=== PATIENT | female | born 1990 | race African-American/Black ===

== ENCOUNTER 2016-11-24 06:15 | Day surgery (SDC) | payer OTHER ==
[2016-11-20 15:04] VITALS: BMI 37.8
[2016-11-24] MEDS ORDERED: oxyCODONE HCL 5 MG TABLET PO PRN ×3 (12:24→16:29)
[2016-11-24] MEDS ORDERED: ACETAMINOPHEN 1000 MG/100 ML VIAL (NON FORMULARY) IVPB ONE ×2 (12:24→16:30)
[2016-11-24] MEDS ORDERED: ONDANSETRON 4 MG/2 ML VIAL IVPUSH PRN ×2 (12:24→16:29)
[2016-11-24] MEDS ORDERED: LACTATED RINGERS SOLUTION 1,000 ML IV SCH (12:30)
[2016-11-24] MEDS ORDERED: PROPOFOL 20 ML ONE ×2 (14:31→15:26)
[2016-11-24] MEDS ORDERED: LIDOCAINE HCL/PF 2% SDV 5ML VIAL ONE (14:31)
[2016-11-24] MEDS ORDERED: MIDAZOLAM HCL 2 MG/2 ML SINGLE DOSE VIAL ONE (14:35)
--- NOTE | 2016-11-24 14:58 | HP ---
History & Physical Update - History History: No Change - Physical Physical: No Change - Assessment Assessment: No Change - Plan Plan: No Change (Risks, benefits, alternatives d/w patient understands risk of infection, bleeding, uterine perforation, injury to bowel, bladder, vessels, need for Hysterectomy. Consent signed and witnessed)
[2016-11-24] MEDS ORDERED: DEXAMETHASONE SOD PHOSPHATE 4 MG/1 ML VIAL ONE (15:43)
[2016-11-24] MEDS ORDERED: ONDANSETRON 4 MG/2 ML VIAL IVPB PRN (16:17)
[2016-11-24] MEDS ORDERED: IBUPROFEN 800 MG/8 ML IJ IVPB PRN (16:17)
[2016-11-24] MEDS ORDERED: IBUPROFEN 600 MG TABLET (FP) PO PRN (16:17)
--- NOTE | 2016-11-24 16:26 | OP ---
Operative Note - Note: Operative Date: 11/24/16 Pre-Operative Diagnosis: 26yo P0 with PCOS, thick endometrium Operation: Hysteroscopy, D&C Findings: Overgrown Endometrium, bilateral ostia visualized, Extensive vasulature Post-Operative Diagnosis: Same as Pre-op Surgeon: Angi Street Anesthesiologist/EAR MUFF ASSEMBLER: Berenice Tony Anesthesia: General Specimens Removed: Endometrial curettings Estimated Blood Loss (mls): 20 Drains & Tubes with Location: Fluid deficit - 930cc Drains, Volume Out (mls): 150 Fluid Volume Replaced (mls): 1,000 Operative Report Dictated: Yes
[2016-11-24] MEDS ORDERED: KETOROLAC TROMETHAMINE 30 MG/1 ML VIAL ONE (16:30)
[2016-11-24] MEDS ORDERED: ELECTROLYTE-148 SOLN 1,000 ML IV SCH (16:30)
[2016-11-24] MEDS ORDERED: KETOROLAC TROMETHAMINE 30 MG/1 ML VIAL IVPUSH ONE (16:31)
[2016-11-24 17:20] VITALS: TEMP 97.8
[2016-11-24 18:53] VITALS: BP 116/64; PULSE 72
--- NOTE | 2016-11-25 07:43 | OP ---
DATE OF OPERATION: 11/24/2016 PREOPERATIVE DIAGNOSES: A 26-year-old para 0 with polycystic ovary syndrome and thickened endometrium. POSTOPERATIVE DIAGNOSES: A 26-year-old para 0 with polycystic ovary syndrome and thickened endometrium. OPERATION: Hysteroscopy, dilatation and curettage. FINDINGS: Overgrown endometrium. Bilateral ostia visualized. Extensive uterine vasculature. SURGEON: Angi Street MD ANESTHESIOLOGIST: BRAD Tony ANESTHESIA: General. SPECIMENS REMOVED: Endometrial curettings. DESCRIPTION OF PROCEDURE: After ensuring the informed consent, patient was brought to the operating room where she was placed in dorsal lithotomy position. Venodynes were placed. General anesthesia was administered. Perineum was prepped and draped in sterile fashion. After assembling 5-mm scope, cervix was visualized by placing Salcedo retractors into the vagina. Cervix was articulated with single-tooth tenaculum and gradually dilated up to gauge 17 Coronel dilators to accommodate 5-mm scope which was introduced into the uterus. Excellent uterine distention was noted. The endometrium was found to be significantly overgrown, but there were no endometrial polyps visualized. Sharp curettage was performed. The hysteroscope was introduced once more. The endometrium was found to be denuded, and extensive uterine vasculature was observed. Uterus was found to be intact. All instruments were removed from the uterus, cervix, and vagina. Excellent hemostasis was noted. Patient was placed back into supine position. Instrument and sponge count was correct x2. Estimated blood loss was 20 mL. Patient drained 100 mL of urine, received 1000 mL of fluid replacement, and fluid deficit was found to be 930 mL, likely due to extensive uterine vasculature. Patient was brought to the recovery room in stable condition. Nell [id number]
--- NOTE | 2016-11-26 13:33 | PATH ---
Surgical Pathology Report Patient Name: DAPHNEY ZEPEDA [facility]. Rec. #: [id number] /Age/Gender: 1990 (Age: 26) / F Account: [id number] Location: [facility] SURGICAL Taken: 11/24/2016 Received: 11/25/2016 Reported: 11/26/2016 Physicians: Angi Street M.D. Specimen(s) Received ENDOMETRIAL CURETTINGS Clinical History Polycystic ovarian syndrome Final Diagnosis ENDOMETRIUM, CURETTAGE: FRAGMENTS OF INACTIVE ENDOMETRIUM WITH FOCAL CHANGES SUGGESTIVE OF EXOGENOUS HORMONE EFFECT AND FOCAL STROMAL AND GLANDULAR BREAKDOWN CHANGES. FRAGMENTS OF BENIGN SMOOTH MUSCLE. FRAGMENTS OF BENIGN ENDOCERVICAL TISSUE. FRAGMENTS OF BENIGN SQUAMOUS EPITHELIUM. Electronically Signed Sulaiman Zhou M.D. Gross Description Received in formalin labeled "endometrial curettings" is a 7.0 x 6.2 x 0.5 cm aggregate of marcial-brown soft tissue fragments admixed with blood clot. The formalin is filtered and the specimen is entirely submitted in 8 cassettes. /11/25/2016 saudi11/25/2016
== END 2016-11-24 18:25 | disposition home or self-care (01) ==
LOC: JASU-SURG 06:15
PROVIDERS: ATTEND Obstetrics & Gynecology
PROC: 0UDB8ZX Extraction of Endometrium, Via Natural or Artificial Opening Endoscopic, Diagnostic (ICD-10-PCS; principal; 2016-11-24 12:00)
DX: E28.2 Polycystic ovarian syndrome (principal); R93.8 Abnormal findings on diagnostic imaging of other specified body structures
CPT/HCPCS: 88305-TC; 94760

== ENCOUNTER 2016-11-24 22:37 | Emergency (ER) | payer OTHER ==
[2016-11-24 22:41] VITALS: BP 137/77; PULSE 94; BMI 38.3
--- NOTE | 2016-11-24 22:46 | PDOC ---
History of Present Illness - General History Source: Patient Exam Limitations: No Limitations <ChongMacrina skinner - Last Filed: 11/24/16 23:42> <Grace Vines - Last Filed: 11/25/16 00:17> - General Chief Complaint: Chest Pain Stated Complaint: CHEST PAIN - History of Present Illness Initial Comments: The patient is a 26 yo F with a past medical history of polycystic ovarian syndrome and endometriosis presents with chest pain s/p general anesthesia for a D&C earlier today. Patient had a POS, D&C and thick endometrium and a hysteroscopy. As per past charts, patient lost 930 ccs which was replaced by 1000 cc of fluids. Patient notes the pain is exacerbated by movement. Patient states it hurts to walk. Patient reports the pain is diffuse and radiates to shoulders. Patient also endorses associated abdominal pain. OBGYN: Dr. Angi Street (Macrina Lopez) Past History <Macrina Lopez - Last Filed: 11/24/16 23:42> - Past Medical History Anemia: Yes Asthma: No Cancer: No Cardiac Disorders: No CVA: No COPD: No CHF: No Dementia: No Diabetes: No GI Disorders: No Disorders: No HTN: No Hypercholesterolemia: No Liver Disease: No Seizures: No Thyroid Disease: No - Psycho/Social/Smoking Cessation Hx Suicidal Ideation: No Smoking History: Never smoked Have you smoked in the past 12 months: No Information on smoking cessation initiated: No Hx Alcohol Use: No Drug/Substance Use Hx: No Substance Use Type: None <Grace Vines - Last Filed: 11/25/16 00:17> - Past Medical History Allergies/Adverse Reactions: Allergies Allergy/AdvReac Type Severity Reaction Status Date / Time No Known Allergies Allergy Verified 11/24/16 22:41 Home Medications: Ambulatory Orders Naproxen Sodium [Aleve] 220 mg PO BID 11/20/16 Diphenhydramine HCl [Benadryl -] 25 mg PO Q6H 11/24/16 Ibuprofen [Motrin -] 800 mg PO Q8H 11/24/16 Cardiac Specific PMH - Complaint Specific PMHX Pacemaker: No <Grace Vines - Last Filed: 11/25/16 00:17> Review of Systems - Review of Systems Able to Perform ROS?: Yes <Macrina Lopez - Last Filed: 11/24/16 23:42> <Grace Vines - Last Filed: 11/25/16 00:17> - Review of Systems Comments:: CONSTITUTIONAL: Absent: fever, chills, diaphoresis, generalized weakness, malaise, loss of appetite HEENT: Absent: rhinorrhea, nasal congestion, throat pain, throat swelling, difficulty swallowing, mouth swelling, ear pain, eye pain, visual Changes CARDIOVASCULAR: +diffuse chest pain. Absent: syncope, palpitations, irregular heart rate, lightheadedness, peripheral edema RESPIRATORY: Absent: cough, shortness of breath, dyspnea with exertion, orthopnea, wheezing, stridor, hemoptysis GASTROINTESTINAL: +diffuse abdominal pain Absent: abdominal distension, nausea, vomiting, diarrhea, constipation, melena, hematochezia GENITOURINARY: Absent: dysuria, frequency, urgency, hesitancy, hematuria, flank pain, genital pain MUSCULOSKELETAL: Absent: myalgia, arthralgia, joint swelling SKIN: Absent: rash, itching, pallor HEMATOLOGIC/IMMUNOLOGIC: Absent: easy bleeding, easy bruising, lymphadenopathy, frequent infections ENDOCRINE: Absent: unexplained weight gain, unexplained weight loss, heat intolerance, cold intolerance NEUROLOGIC: Absent: headache, focal weakness or paresthesia, dizziness, unsteady gait, seizure, mental status changes, bladder or bowel incontinence PSYCHIATRIC: Absent: anxiety, depression, suicidal or homicidal ideation, hallucinations (Macrina Lopez) *Physical Exam <Macrina Lopez - Last Filed: 11/24/16 23:42> <Grace Vines - Last Filed: 11/25/16 00:17> - Vital Signs Last Vital Signs Temp Pulse Resp BP Pulse Ox 94 H 18 137/77 100 11/24/16 22:39 11/24/16 22:39 11/24/16 22:39 11/24/16 22:39 - Physical Exam Comments: GENERAL: Well developed, well nourished. Awake and alert. Tearful in moderate distress. HEENT: Normocephalic, atraumatic. PERRLA, EOMI. No conjunctival pallor. Sclera are non- icteric. Moist mucous membranes. Oropharynx is clear. NECK: Supple. Full ROM. No JVD. Carotid pulses 2+ and symmetric, without bruits. No thyromegaly. No lymphadenopathy. CARDIOVASCULAR: Regular rate and rhythm. No murmurs, rubs, or gallops. Distal pulses are 2+ and symmetric. PULMONARY: No evidence of respiratory distress. Lungs clear to auscultation bilaterally. No wheezing, rales or rhonchi. ABDOMINAL: Soft. Non-tender. Non-distended. No rebound or guarding. No organomegaly. Normoactive bowel sounds. MUSCULOSKELETAL Normal range of motion at all joints. No bony deformities or tenderness. No CVA tenderness. EXTREMITIES: No cyanosis. No clubbing. No edema. No calf tenderness. SKIN: Warm and dry. Normal capillary refill. No rashes. No jaundice. NEUROLOGICAL: No gross focal neurological deficits. PSYCHIATRIC: Cooperative. Good eye contact. Appropriate mood and affect (ChongandrewMacrina ortiz) - RADIOLOGY Radiology Studies Ordered: Category Date Time Status CHEST PA & LAT [RAD] Stat Radiology 11/24/16 23:32 Taken - Medications Given in the ED: ED Medications Discontinued Medications Generic Name Dose Route Start Last Admin Trade Name Freq PRN Reason Stop Dose Admin Morphine Sulfate 2 mg 11/24/16 23:33 11/25/16 00:04 Morphine Injection - IVPUSH 11/24/16 23:34 Not Given ONCE ONE Medical Decision Making <JessicaMacrina - Last Filed: 11/24/16 23:42> <Grace Vines - Last Filed: 11/25/16 00:17> - Medical Decision Making 11/25/16 00:10 26-year-old female presented with chest and abdominal pain following a hysteroscopy today for endometriosis -She denies any shortness of breath or palpitations and states that her pain is very positional and it hurts to move. She is not hypoxic. Chest x-ray was done. There is no evidence of pneumothorax -SHE Is not having fever. - ekg is not showing signs of ischemia Initially I was going to give her some morphine, but she said she started to feel better and doesn't want a shot. She went to the bathroom and urinated and feels much better She did take Motrin 800 prior to arrival Patient states that she just wants to go home now. She was with her mother will be driving her home. She complains of some diffuse abdominal distention. She doesn't have any rebound or guarding on her exam Fraction. Musculoskeletal skeletal pain following general anesthesia today ( Grace Vines) *DC/Admit/Observation/Transfer <Macrina Lopez - Last Filed: 11/24/16 23:42> <Grace Vines - Last Filed: 11/25/16 00:17> Diagnosis at time of Disposition: Chest discomfort, Abdominal distension - Discharge Dispostion Disposition: HOME Condition at time of disposition: Stable - Referrals Referrals: Angi Street MD [Primary Care Provider] - - Patient Instructions Printed Discharge Instructions: DI for Atypical Chest Pain, DI for Postoperative Pain Additional Instructions: please take the medications recommended to your a and p technician return for any worsening symptoms - Attestations Scribe Attestion: Documentation prepared by Macrina Lopez, acting as medical sonographer for Grace Vines MD/DO. (Macrina Lopez)
[2016-11-24] MEDS ORDERED: morphine CARPU-JECT 2 MG/1 ML DISP.SYRIN IVPUSH ONE (23:33)
[2016-11-25] MEDS ORDERED: OXYCODONE/APAP 5/325MG COMBO TABLET PO ONE (00:10)
[2016-11-25] MEDS ORDERED: OXYCODONE/APAP 5/325MG COMBO TABLET ONE (00:25)
--- NOTE | 2016-11-27 17:29 | EKG ---
Test Reason : Blood Pressure : / mmHG Vent. Rate : 089 BPM Atrial Rate : 089 BPM P-R Int : 178 ms QRS Dur : 074 ms QT Int : 368 ms P-R-T Axes : 057 014 016 degrees QTc Int : 447 ms NORMAL SINUS RHYTHM NONSPECIFIC T WAVE ABNORMALITY ABNORMAL ECG WHEN COMPARED WITH ECG OF 21-NOV-2016 09:45, NO SIGNIFICANT CHANGE WAS FOUND Confirmed by MD BETH, ELDON ([id number]) on 11/27/2016 5:29:12 PM Referred By: Confirmed By:ELDON CAMPOS MD
== END 2016-11-25 00:24 | disposition home or self-care (01) ==
LOC: JER 22:37
DX: G89.18 Other acute postprocedural pain (principal); R07.89 Other chest pain
CPT/HCPCS: 71020-TC; 93005; 93010; 99282-25